=== PATIENT | female | born 1970 | race Caucasian/White ===

== ENCOUNTER 2022-04-26 14:56 | Inpatient (IN) | payer OTHER ==
[~2022-04-26] VITALS: Ht 154.9 cm; Wt 162.4 kg
[~2022-04-26 14:56] MED LIST: AMBIEN10 MG; DEPAKOTE ER500 MG; ESIDRIX25 MG PO; KLONOPIN1 MG; LAMICTAL25 MG; SODIUM CHLORIDE FLUSH 10 ML SYR IV PRN
[2022-04-26] MEDS ORDERED: SODIUM CHLORIDE 0.9% 1000ML 1,000 ML IV ONE (18:30)
[2022-04-26] MEDS ORDERED: ONDANSETRON HCL INJ 2MG/ML 2ML 2 MG/ML VIAL IV STA (18:43)
[2022-04-26] MEDS ORDERED: Morphine 4mg INJECTION 4 MG/ML INJ IV ONE (18:45)
[2022-04-26] MEDS ORDERED: ONDANSETRON HCL INJ 2MG/ML 2ML 2 MG/ML VIAL ONE (18:59)
[2022-04-26] MEDS ORDERED: Morphine 4mg INJECTION 4 MG/ML INJ ONE (18:59)
[2022-04-26] MEDS: ONDANSETRON HCL INJ 2MG/ML 2ML 2 MG/ML VIAL IV STA ×2 (19:15→19:43)
[2022-04-26 20:06] LABS: BASOPHILS % 0.5 % (0.0-1.0); EOSINOPHILS # (AUTO) 0.1 (0.0-0.4); EOSINOPHILS % 1.7 % (0.0-6.0); HEMATOCRIT 42.5 % (34.2-44.1); HEMOGLOBIN 13.4 g/dL (12.0-16.0); LYMPHOCYTES # (AUTO) 0.8 (1.0-3.2); LYMPHOCYTES % 9.8 % (18.0-39.1); MEAN CORPUSCULAR HEMOGLOBIN 31.2 pg (28-32); MEAN CORPUSCULAR HGB CONC 31.5 g/dL (31-35); MEAN CORPUSCULAR VOLUME 98.8 fL (81-99); MONOCYTES # (AUTO) 0.7 (0.2-0.8); MONOCYTES % 8.6 % (4.4-11.3); NEUTROPHILS # (AUTO) 6.5 (2.1-6.9); NEUTROPHILS % 79.2 % (38.7-80.0); PLATELET COUNT 196 x10e3/uL (140-360)
[2022-04-26 20:23] LABS: INR 0.96; PARTIAL THROMBOPLASTIN TIME 23.9 seconds (23.8-35.5); PROTHROMBIN TIME 13.7 seconds (11.9-14.5)
[2022-04-26 20:36] LABS: ALBUMIN 3.7 g/dL (3.5-5.0); ALBUMIN/GLOBULIN RATIO 1.2 (0.8-2.0); CREATININE, SERUM 0.72 mg/dL (0.57-1.11)
[2022-04-26 21:27] LABS: CLARITY,URINE SL CLOUDY (CLEAR); COLOR,URINE AMBER (YELLOW); KETONES,URINE 2+ (NEGATIVE); LEUKOCYTE ESTERASE ,URINE SMALL (NEGATIVE); NITRITE,URINE POSITIVE (NEGATIVE); PROTEIN,URINE DIPSTICK 1+ (NEGATIVE); URINE UROBILINOGEN 0.2 mg/dL (0.2 - 1)
[2022-04-26 21:38] LABS: RBC,URINE 0-5 /HPF (0-5); WBC,URINE (MAN) >50 /HPF (0-5)
[2022-04-26 21:39] LABS: BACTERIA,URINE MODERATE /HPF; EPITHELIAL CELLS,URINE MANY /LPF
[2022-04-26] MEDS ORDERED: SODIUM CHLORIDE 0.9% 1000ML 1,000 ML IV SCH (21:45)
[2022-04-26] MEDS ORDERED: ONDANSETRON HCL INJ 2MG/ML 2ML 2 MG/ML VIAL IV PRN (21:45)
[2022-04-26] MEDS ORDERED: Morphine 4mg INJECTION 4 MG/ML INJ IV PRN (21:45)
[2022-04-26] MEDS: DEXTROSE 5%/0.45% SOD CHL 1,000 ML IV SCH (21:52)
[2022-04-26 22:09] LABS: CHOL/HDL RATIO 2.6 (3.0-3.6)
[2022-04-27] VITALS (9 sets, daily range): BP systolic 102–126; BP diastolic 35–85
[2022-04-27] MEDS: ONDANSETRON HCL INJ 2MG/ML 2ML 2 MG/ML VIAL IV PRN ×4 (02:16→18:47)
[2022-04-27] MEDS ORDERED: RISPERDAL2 MG PO (02:23)
[2022-04-27] MEDS ORDERED: TRAZODONE HCL100 MG PO (02:23)
[2022-04-27] MEDS ORDERED: LITHOBID300 MG PO (02:24)
[2022-04-27] MEDS: Morphine 2mg Syringe 2 MG/ML SYR IV PRN ×4 (04:50→18:47)
[2022-04-27 09:28] LABS: BASOPHILS % 0.5 % (0.0-1.0); EOSINOPHILS # (AUTO) 0.3 (0.0-0.4); HEMATOCRIT 36.2 % (34.2-44.1); HEMOGLOBIN 11.5 g/dL (12.0-16.0); LYMPHOCYTES # (AUTO) 0.9 (1.0-3.2); LYMPHOCYTES % 12.2 % (18.0-39.1); MEAN CORPUSCULAR HGB CONC 31.8 g/dL (31-35); MEAN CORPUSCULAR VOLUME 97.6 fL (81-99); MONOCYTES # (AUTO) 0.9 (0.2-0.8); MONOCYTES % 11.7 % (4.4-11.3); NEUTROPHILS # (AUTO) 5.4 (2.1-6.9); NEUTROPHILS % 71.3 % (38.7-80.0); PLATELET COUNT 195 x10e3/uL (140-360); RED BLOOD COUNT 3.71 x10e6/uL (3.6-5.1)
[2022-04-27 09:48] LABS: ALBUMIN 3.1 g/dL (3.5-5.0); ALBUMIN/GLOBULIN RATIO 1.2 (0.8-2.0); ANION GAP 9.3 mmol/L (8-16); CALCIUM 8.3 mg/dL (8.4-10.2); CREATININE, SERUM 0.65 mg/dL (0.57-1.11); POTASSIUM 3.3 mmol/L (3.5-5.1)
[2022-04-27 09:58] LABS: MAGNESIUM 1.8 MG/DL (1.3-2.1); PHOSPHORUS 2.8 MG/DL (2.3-4.7)
[2022-04-27] MEDS: DEXTROSE 5%/0.45% SOD CHL 1,000 ML IV SCH (11:56)
[2022-04-27] MEDS ORDERED: POTASSIUM CHLORIDE 20MEQ/100ML 100 ML IV ONE (12:45)
[2022-04-28] VITALS (7 sets, daily range): BP systolic 107–138; BP diastolic 53–70
[2022-04-28] MEDS: Morphine 2mg Syringe 2 MG/ML SYR IV PRN ×4 (00:11→20:03)
[2022-04-28 06:28] LABS: BASOPHILS % 0.6 % (0.0-1.0); EOSINOPHILS # (AUTO) 0.3 (0.0-0.4); EOSINOPHILS % 3.8 % (0.0-6.0); HEMATOCRIT 36.6 % (34.2-44.1); LYMPHOCYTES # (AUTO) 1.5 (1.0-3.2); LYMPHOCYTES % 21.4 % (18.0-39.1); MEAN CORPUSCULAR HGB CONC 30.1 g/dL (31-35); MEAN CORPUSCULAR VOLUME 103.1 fL (81-99); MONOCYTES # (AUTO) 0.8 (0.2-0.8); MONOCYTES % 10.8 % (4.4-11.3); NEUTROPHILS # (AUTO) 4.4 (2.1-6.9); PLATELET COUNT 203 x10e3/uL (140-360); RED BLOOD COUNT 3.55 x10e6/uL (3.6-5.1); RED CELL DISTRIBUTION WIDTH 13.2 % (11.7-14.4)
[2022-04-28 06:59] LABS: ANION GAP 10.1 mmol/L (8-16); CALCIUM 7.9 mg/dL (8.4-10.2); CREATININE, SERUM 0.66 mg/dL (0.57-1.11); MAGNESIUM 1.7 MG/DL (1.3-2.1); PHOSPHORUS 3.3 MG/DL (2.3-4.7); POTASSIUM 3.1 mmol/L (3.5-5.1)
[2022-04-28] MEDS: ONDANSETRON HCL INJ 2MG/ML 2ML 2 MG/ML VIAL IV PRN ×3 (07:54→23:54)
[2022-04-28] MEDS: PROMETHAZINE 12.5MG/ NACL 0.9% 12.5 MG/50 ML BAG IV PRN ×2 (09:55→20:04)
[2022-04-28] MEDS: DEXTROSE 5%/0.45% SOD CHL 1,000 ML IV SCH ×2 (09:56→23:50)
[2022-04-28] MEDS ORDERED: POTASSIUM CHLORIDE 20MEQ/100ML 100 ML IV STA (10:25)
[2022-04-28] MEDS: METRONIDAZOLE 500MG/NS 100ML 100 ML IV SCH ×2 (15:48→21:11)
[2022-04-28] MEDS: LITHIUM CARBONATE ER 300 MG TAB PO SCH (15:48)
[2022-04-28] MEDS: TRAZODONE HCL 50 MG TAB PO SCH (20:00)
[2022-04-28] MEDS: RISPERIDONE 1 MG TAB PO SCH (20:02)
[2022-04-28] MEDS ORDERED: RISPERIDONE 2 MG PO SCH (21:00)
[2022-04-29] VITALS (7 sets, daily range): BP systolic 107–122; BP diastolic 48–72
[2022-04-29] MEDS: PROMETHAZINE 12.5MG/ NACL 0.9% 12.5 MG/50 ML BAG IV PRN (02:42)
[2022-04-29] MEDS: METRONIDAZOLE 500MG/NS 100ML 100 ML IV SCH ×3 (06:11→20:51)
[2022-04-29] MEDS: CEFTRIAXONE 2 GM in SODIUM CHLORIDE 0.9% 100 ML IV SCH (08:37)
[2022-04-29] MEDS: LITHIUM CARBONATE ER 300 MG TAB PO SCH ×2 (08:37→17:28)
[2022-04-29] MEDS: ONDANSETRON HCL INJ 2MG/ML 2ML 2 MG/ML VIAL IV PRN ×3 (08:37→17:29)
[2022-04-29] MEDS: Morphine 2mg Syringe 2 MG/ML SYR IV PRN ×3 (08:37→17:29)
[2022-04-29 14:24] LABS: MAGNESIUM 1.7 MG/DL (1.3-2.1); PHOSPHORUS 3.2 MG/DL (2.3-4.7); POTASSIUM 3.2 mmol/L (3.5-5.1)
[2022-04-29] MEDS: DEXTROSE 5%/0.45% SOD CHL 1,000 ML IV SCH (16:25)
[2022-04-29] MEDS: RISPERIDONE 1 MG TAB PO SCH (20:50)
[2022-04-29] MEDS: TRAZODONE HCL 50 MG TAB PO SCH (20:51)
[2022-04-30] VITALS (9 sets, daily range): BP systolic 117–136; BP diastolic 40–89
[2022-04-30] MEDS: Morphine 2mg Syringe 2 MG/ML SYR IV PRN (01:26)
[2022-04-30] MEDS: METRONIDAZOLE 500MG/NS 100ML 100 ML IV SCH ×3 (05:05→20:56)
[2022-04-30] MEDS: LITHIUM CARBONATE ER 300 MG TAB PO SCH ×2 (09:44→16:26)
[2022-04-30] MEDS: CEFTRIAXONE 2 GM in SODIUM CHLORIDE 0.9% 100 ML IV SCH (09:44)
[2022-04-30] MEDS: ONDANSETRON HCL INJ 2MG/ML 2ML 2 MG/ML VIAL IV PRN (12:14)
[2022-04-30] MEDS: DEXTROSE 5%/0.45% SOD CHL 1,000 ML IV SCH (13:38)
[2022-04-30 13:39] LABS: MAGNESIUM 1.5 MG/DL (1.3-2.1); POTASSIUM 3.6 mmol/L (3.5-5.1)
[2022-04-30] MEDS: RISPERIDONE 1 MG TAB PO SCH (20:56)
[2022-04-30] MEDS: TRAZODONE HCL 50 MG TAB PO SCH (20:56)
[2022-05-01] VITALS (7 sets, daily range): BP systolic 106–134; BP diastolic 57–70
[2022-05-01] MEDS: METRONIDAZOLE 500MG/NS 100ML 100 ML IV SCH ×2 (07:27→13:49)
[2022-05-01] MEDS: CEFTRIAXONE 2 GM in SODIUM CHLORIDE 0.9% 100 ML IV SCH (09:19)
[2022-05-01] MEDS: LITHIUM CARBONATE ER 300 MG TAB PO SCH ×2 (09:20→16:28)
[2022-05-01] MEDS ORDERED: VENLAFAXINE HCL 75 MG TAB PO SCH (14:00)
[2022-05-01] MEDS ORDERED: VENLAFAXINE HCL75 MG PO (16:41)
== END 2022-05-01 21:45 | DRG 388 ==
LOC: ER 15:39 → ERHOLD 21:45 → MED/SURG3 04-27 00:10
PROVIDERS: ADMIT Internal Medicine; ATTEND Internal Medicine
PROC: 8E0ZXY6 Isolation (ICD-10-PCS; principal; 2022-04-26)
DX: K56.600 Partial intestinal obstruction, unspecified as to cause (principal); U07.1 COVID-19; Z68.44 Body mass index [BMI] 60.0-69.9, adult; I48.92 Unspecified atrial flutter; E87.6 Hypokalemia; K52.9 Noninfective gastroenteritis and colitis, unspecified; F99 Mental disorder, not otherwise specified; E66.01 Morbid (severe) obesity due to excess calories; F31.9 Bipolar disorder, unspecified
CPT/HCPCS: 0223U; 36415; 36569; 71045; 74018; 74019; 74176; 80048; 80053; 80061; 80178; 81001; 82948; 83036; 83690; 83735; 84100; 84132; 85025; 85610; 85730; 87400; 99251; 99285; J0696; J2270; J2405; J2543; J2550; J3480; J7030; J7050

== ENCOUNTER 2022-05-02 20:35 | Inpatient (IN) | payer OTHER ==
[~2022-05-02] VITALS: Ht 154.9 cm; Wt 162.4 kg
[~2022-05-02 20:35] MED LIST changes: +LITHOBID300 MG PO; +RISPERDAL2 MG PO; -SODIUM CHLORIDE FLUSH 10 ML SYR IV PRN; +TRAZODONE HCL100 MG PO; +VENLAFAXINE HCL75 MG PO
[2022-05-03] VITALS (7 sets, daily range): BP systolic 109–136; BP diastolic 50–77
[2022-05-03] MEDS ORDERED: BENZOCAINE/TETRACAINE/BUTAMBEN AERO SPRAY 56 GM CAN TOP ONE (00:15)
[2022-05-03 00:50] LABS: BASOPHILS % 0.5 % (0.0-1.0); EOSINOPHILS # (AUTO) 0.3 (0.0-0.4); EOSINOPHILS % 4.1 % (0.0-6.0); HEMATOCRIT 38.1 % (34.2-44.1); HEMOGLOBIN 11.7 g/dL (12.0-16.0); LYMPHOCYTES # (AUTO) 1.3 (1.0-3.2); LYMPHOCYTES % 19.9 % (18.0-39.1); MEAN CORPUSCULAR HEMOGLOBIN 30.7 pg (28-32); MEAN CORPUSCULAR HGB CONC 30.7 g/dL (31-35); MONOCYTES # (AUTO) 0.7 (0.2-0.8); MONOCYTES % 11.6 % (4.4-11.3); NEUTROPHILS # (AUTO) 4.1 (2.1-6.9); NEUTROPHILS % 63.7 % (38.7-80.0); PLATELET COUNT 237 x10e3/uL (140-360); RED BLOOD COUNT 3.81 x10e6/uL (3.6-5.1); RED CELL DISTRIBUTION WIDTH 12.9 % (11.7-14.4)
[2022-05-03 01:10] LABS: ALANINE AMINOTRANSFERASE 12 IU/L (0-55); ALBUMIN 3.2 g/dL (3.5-5.0); ALBUMIN/GLOBULIN RATIO 1.1 (0.8-2.0); ALKALINE PHOSPHATASE 76 IU/L (40-150); ANION GAP 16.4 mmol/L (8-16); BLOOD UREA NITROGEN < 5 mg/dL (7-26); CALCIUM 8.8 mg/dL (8.4-10.2); CARBON DIOXIDE 25 mmol/L (22-29); CHLORIDE 100 mmol/L (98-107); CREATININE, SERUM 0.55 mg/dL (0.57-1.11); GLUCOSE 104 mg/dL (74-118); POTASSIUM 3.4 mmol/L (3.5-5.1); SODIUM 138 mmol/L (136-145)
[2022-05-03 01:14] LABS: BUN/CREATININE RATIO 9 (6-25)
[2022-05-03] MEDS: ONDANSETRON HCL INJ 2MG/ML 2ML 2 MG/ML VIAL IV PRN ×4 (01:48→21:16)
[2022-05-03] MEDS: SODIUM CHLORIDE 0.9% 1000ML 1,000 ML IV SCH ×3 (03:54→16:42)
[2022-05-03] MEDS: Morphine 4mg INJECTION 4 MG/ML INJ IV PRN ×4 (03:54→21:16)
[2022-05-04] VITALS: BP 131/66
[2022-05-04] MEDS: SODIUM CHLORIDE 0.9% 1000ML 1,000 ML IV SCH ×3 (00:49→17:02)
[2022-05-04] MEDS: ONDANSETRON HCL INJ 2MG/ML 2ML 2 MG/ML VIAL IV PRN ×3 (01:39→20:36)
[2022-05-04] MEDS: Morphine 4mg INJECTION 4 MG/ML INJ IV PRN ×3 (01:39→20:35)
[2022-05-04 04:00] VITALS: BP 119/76
[2022-05-04 08:08] VITALS: BP 140/47
[2022-05-04 14:00] VITALS: BP 130/63
[2022-05-04 15:45] VITALS: BP 139/59
[2022-05-04 20:00] VITALS: BP 152/81
[2022-05-05] VITALS (8 sets, daily range): BP systolic 119–152; BP diastolic 64–83
[2022-05-05] MEDS: SODIUM CHLORIDE 0.9% 1000ML 1,000 ML IV SCH ×2 (00:48→11:38)
[2022-05-05] MEDS: ONDANSETRON HCL INJ 2MG/ML 2ML 2 MG/ML VIAL IV PRN ×2 (01:02→06:19)
[2022-05-05] MEDS: Morphine 4mg INJECTION 4 MG/ML INJ IV PRN ×4 (01:03→20:01)
[2022-05-05 14:38] LABS: ANION GAP 17.7 mmol/L (8-16); BLOOD UREA NITROGEN < 5 mg/dL (7-26); CALCIUM 8.2 mg/dL (8.4-10.2); CARBON DIOXIDE 24 mmol/L (22-29); CHLORIDE 102 mmol/L (98-107); CREATININE, SERUM 0.57 mg/dL (0.57-1.11); MAGNESIUM 1.5 MG/DL (1.3-2.1); POTASSIUM 3.7 mmol/L (3.5-5.1)
[2022-05-05 14:44] LABS: BUN/CREATININE RATIO 9 (6-25)
[2022-05-05 14:47] LABS: GLUCOSE 59 mg/dL (74-118); SODIUM 140 mmol/L (136-145)
[2022-05-05] MEDS ORDERED: DEXTROSE 50% SYRINGE 50 ML IV PRN (16:00)
[2022-05-05] MEDS ORDERED: DEXTROSE 50% SYRINGE 50 ML IV ONE (16:12)
[2022-05-05] MEDS: DEXTROSE 5%/0.45% SOD CHL 1,000 ML IV SCH (16:15)
[2022-05-06] VITALS (8 sets, daily range): BP systolic 124–156; BP diastolic 65–81
[2022-05-06] MEDS: DEXTROSE 5%/0.45% SOD CHL 1,000 ML IV SCH ×3 (05:51→21:15)
[2022-05-06] MEDS ORDERED: BUPIVACAINE HCL 0.5% INJ 30 ML VIAL INJ ONE (09:18)
[2022-05-06] MEDS: SODIUM CHLORIDE 0.9% 250ML IRRIG IR SCH ×4 (10:00→22:00)
[2022-05-06] MEDS ORDERED: SUGAMMADEX SODIUM 200 MG/2 ML VIAL IV ONE ×2 (10:21→19:06)
[2022-05-06] MEDS ORDERED: FENTANYL CITRATE/PF 100MCG/2 ML INJ ONE (12:44)
[2022-05-06] MEDS ORDERED: MIDAZOLAM HCL 2 MG/2 ML VIAL ONE (12:44)
[2022-05-06] MEDS: Morphine 4mg INJECTION 4 MG/ML INJ IV PRN ×3 (12:58→21:15)
[2022-05-06] MEDS: ONDANSETRON HCL INJ 2MG/ML 2ML 2 MG/ML VIAL IV PRN ×2 (12:58→18:02)
[2022-05-06] MEDS: NYSTATIN 15 GM POWDER UD BTL TOP SCH (17:53)
[2022-05-06] MEDS ORDERED: LORAZEPAM INJ 2 MG/ML VIAL IV PRN (19:00)
[2022-05-06] MEDS ORDERED: GLYCOPYRROLATE INJ 0.2 MG/ML VIAL ONE (19:06)
[2022-05-06] MEDS ORDERED: NEOSTIGMINE 1 MG/ML 10ML VIAL ONE (19:06)
[2022-05-06] MEDS ORDERED: SUCCINYLCHOLINE CHLORIDE 20 MG/ML 10ML VIAL ONE (19:06)
[2022-05-06] MEDS ORDERED: PROPOFOL IV EMULSION 10 MG/ML 20 ML VIAL ONE (19:06)
[2022-05-06] MEDS ORDERED: LIDOCAINE HCL 2% LOCAL INJ 5 ML SDV VIAL INJ ONE (19:06)
[2022-05-06] MEDS ORDERED: DEXAMETHASONE SOD PHOS INJ 4 MG/ML SDV ONE (19:06)
[2022-05-06] MEDS ORDERED: SEVOFLURANE INHAL SOLN 250 ML PEN BTL ONE (19:06)
[2022-05-06] MEDS ORDERED: ACETAMINOPHEN 1000 MG/100 ML IV ONE (19:06)
[2022-05-06] MEDS ORDERED: KETOROLAC TROMETHAMINE 30 MG/ML VIAL ONE (19:06)
[2022-05-06] MEDS ORDERED: ROCURONIUM BROMIDE 10 MG/ML 5ML VIAL IV ONE (19:06)
[2022-05-06] MEDS ORDERED: POVIDONE IODINE 0.05% 0.05 % ML PO ONE (19:06)
[2022-05-06] MEDS ORDERED: ONDANSETRON HCL INJ 2MG/ML 2ML 2 MG/ML VIAL ONE (19:06)
[2022-05-07] VITALS (8 sets, daily range): BP systolic 108–145; BP diastolic 54–78
[2022-05-07] MEDS: SODIUM CHLORIDE 0.9% 250ML IRRIG IR SCH ×2 (02:21→06:45)
[2022-05-07 05:54] LABS: BASOPHILS % 0.2 % (0.0-1.0); HEMATOCRIT 37.4 % (34.2-44.1); HEMOGLOBIN 12.1 g/dL (12.0-16.0); LYMPHOCYTES # (AUTO) 0.8 (1.0-3.2); LYMPHOCYTES % 8.7 % (18.0-39.1); MEAN CORPUSCULAR HEMOGLOBIN 31.1 pg (28-32); MEAN CORPUSCULAR HGB CONC 32.4 g/dL (31-35); MEAN CORPUSCULAR VOLUME 96.1 fL (81-99); MONOCYTES # (AUTO) 0.9 (0.2-0.8); MONOCYTES % 9.7 % (4.4-11.3); NEUTROPHILS # (AUTO) 7.7 (2.1-6.9); NEUTROPHILS % 81.1 % (38.7-80.0); PLATELET COUNT 242 x10e3/uL (140-360); RED BLOOD COUNT 3.89 x10e6/uL (3.6-5.1); RED CELL DISTRIBUTION WIDTH 12.2 % (11.7-14.4)
[2022-05-07 06:31] LABS: ANION GAP 13.5 mmol/L (8-16); BLOOD UREA NITROGEN < 5 mg/dL (7-26); CALCIUM 8.9 mg/dL (8.4-10.2); CARBON DIOXIDE 29 mmol/L (22-29); CHLORIDE 99 mmol/L (98-107); CREATININE, SERUM 0.57 mg/dL (0.57-1.11); GLUCOSE 152 mg/dL (74-118); POTASSIUM 3.5 mmol/L (3.5-5.1); SODIUM 138 mmol/L (136-145)
[2022-05-07 06:34] LABS: BUN/CREATININE RATIO 9 (6-25)
[2022-05-07] MEDS: DEXTROSE 5%/0.45% SOD CHL 1,000 ML IV SCH ×2 (08:31→16:16)
[2022-05-07] MEDS: NYSTATIN 15 GM POWDER UD BTL TOP SCH ×2 (09:00→16:16)
[2022-05-07] MEDS ORDERED: TRAZODONE HCL 50 MG TAB PO SCH (21:00)
[2022-05-07] MEDS ORDERED: RISPERIDONE 1 MG TAB PO SCH (21:00)
[2022-05-07] MEDS: VENLAFAXINE HCL 75 MG TAB PO SCH (22:52)
[2022-05-08] VITALS: BP 129/108
[2022-05-08] MEDS: Morphine 4mg INJECTION 4 MG/ML INJ IV PRN (01:08)
[2022-05-08 04:00] VITALS: BP 109/55
[2022-05-08] MEDS: DEXTROSE 5%/0.45% SOD CHL 1,000 ML IV SCH (05:13)
[2022-05-08 08:38] VITALS: BP 103/43
[2022-05-08] MEDS ORDERED: ONDANSETRON ODT4 MG PO (08:47)
[2022-05-08] MEDS ORDERED: DOCUSATE SODIU100 MG PO (08:47)
[2022-05-08] MEDS ORDERED: SENNA LAX8.6 MG PO (08:47)
[2022-05-08 08:55] VITALS: BP 103/43
[2022-05-08] MEDS: VENLAFAXINE HCL 75 MG TAB PO SCH (09:00)
[2022-05-08] MEDS: NYSTATIN 15 GM POWDER UD BTL TOP SCH (09:00)
[2022-05-08 12:18] VITALS: BP 110/71
== END 2022-05-08 12:35 | disposition home or self-care (01) | DRG 328 ==
LOC: ER 20:40 → ERHOLD 05-03 00:16 → MED/SURG2 05-03 02:21
PROVIDERS: ADMIT Internal Medicine; ATTEND Internal Medicine
PROC: 0DJ04ZZ Inspection of Upper Intestinal Tract, Percutaneous Endoscopic Approach (ICD-10-PCS; principal; 2022-05-06 06:15)
DX: K56.51 Intestinal adhesions [bands], with partial obstruction (principal); F31.9 Bipolar disorder, unspecified; Z20.822 Contact with and (suspected) exposure to COVID-19; K52.9 Noninfective gastroenteritis and colitis, unspecified; I10 Essential (primary) hypertension; J44.9 Chronic obstructive pulmonary disease, unspecified; F20.9 Schizophrenia, unspecified; K21.9 Gastro-esophageal reflux disease without esophagitis; E87.6 Hypokalemia; F41.9 Anxiety disorder, unspecified
CPT/HCPCS: 36415; 71045; 74018; 80048; 80053; 80178; 82948; 83690; 83735; 84100; 85025; 94799; 96361; 99284; J0330; J0694; J1100; J1885; J2001; J2060; J2250; J2270; J2405; J2543; J2710; J3010; J7030; J7799